=== PATIENT | male | born 1950 | race Caucasian/White ===

== ENCOUNTER 2020-12-07 08:22 | Outpatient (CLI) | payer MEDICARE, BC, SELFPAY ==
--- NOTE | 2020-12-07 | MR_ITS ---
WS: [id number] MRI LEFT ELBOW without CONTRAST. COMPARISON: None Multiplanar, multisequence imaging is performed without contrast. History: Pain in elbow for one and a half months. Very small amount of increased fluid surrounding the radial head. No marrow edema or fracture. Marker indicating the area of interest corresponds to the lateral elbow. Area of interest extends over michelle ral centimeters. The adjacent soft tissues and muscles are normal. There is increased signal with thi ckening involving the proximal common extensor tendon. Intrasubstance tear at the attachment to the e picondyle. The deep radial collateral ligament is intact. No muscle edema or atrophy. There is also i ncreased fluid along the distal biceps tendon sheath. The biceps tendon is very slightly wavy. There is increase fluid along the tendon sheath. Biceps tendon attachment to the radial tuberosity is parti ally torn. There is increase fluid and thickening of the tendon. MR/MR elbow LT wo con* [id number] IMPRESSION: 1. Partial high-grade tear involving the biceps tendon at its attachment to th e radial tuberosity. 2. Proximal, moderate common extensor tendinopathy. Partial intrasubstance tea r.
== END 2020-12-07 08:23 | disposition home or self-care (01) ==
LOC: RADWPI 08:26
PROVIDERS: PCP Family Medicine; Visit Provider Orthopaedic Surgery
DX: M67.8 Other specified disorders of synovium and tendon (principal); S46.212A Strain of muscle, fascia and tendon of other parts of biceps, left arm, initial encounter; X58.XXXA Exposure to other specified factors, initial encounter
CPT/HCPCS: 73221

== ENCOUNTER 2021-02-01 08:23 | Outpatient (RCR) | payer MEDICARE, BC, SELFPAY | END 2021-02-28 23:59 | disposition home or self-care (01) | LOC: SPT 08:23 | PROVIDERS: PCP Family Medicine; Referring Provider Orthopaedic Surgery; Visit Provider Orthopaedic Surgery | DX: Z47.89 Encounter for other orthopedic aftercare (principal) | CPT/HCPCS: 97110; 97140; 97161 ==

== ENCOUNTER 2022-09-29 15:39 | Outpatient (CLI) | payer MEDICARE, BC, SELFPAY ==
--- NOTE | 2022-09-29 | MR_ITS ---
WS: [id number] MRI RIGHT SHOULDER HISTORY: CHRONIC RT SHOULDER PAIN COMPARISON: None available. TECHNIQUE: Multiplanar sequences of the shoulder joint are submitted. Severe AC joint arthritis. Bone and soft tissue hypertrophy. Marked narrowing of the AC joint with hy pertrophic osteophytes along the articular surfaces. Osteophyte encroachment upon the myotendinous in sertion supraspinatus tendon. No significant subacromial or subdeltoid bursal distention. Small osteo phyte distal acromion with mild subacromial encroachment. Normal position of the biceps tendon. Metal lic artifact in the humeral head. Patient denied prior surgery. Mild narrowing of the glenohumeral joint. Insertion site tear measures 6 mm along the articular surfa ce of the supraspinatus, the anterior most part of the supraspinatus. The remaining rotator cuff tend ons appear intact. Normal significant muscle atrophy or edema. Mild increased signal in the labrum. N o tear identified. Intrasubstance degeneration of the labrum. Subchondral cystic disease humeral head . Loss of cartilage involving the humeral head. MR/MR shoulder RT wo con* [id number] IMPRESSION: 1. Severe AC joint arthritis with encroachment upon the myotendinous insertion of the supraspinatus. 2. Small articular surface tear supraspinatus tendon, distal. 3. Intrasubstance degeneration of the labrum. 4. Mild subacromial impingement.
== END 2022-09-29 15:40 | disposition home or self-care (01) ==
LOC: RAD 15:42
PROVIDERS: PCP Family Medicine; Visit Provider Family Medicine
DX: G89.29 Other chronic pain (principal); M13.811 Other specified arthritis, right shoulder; M75.101 Unspecified rotator cuff tear or rupture of right shoulder, not specified as traumatic
CPT/HCPCS: 73221

== ENCOUNTER → 2022-11-01 14:05 | Outpatient (BNVA) | payer MEDICARE, BC, SELFPAY | PROVIDERS: PCP Family Medicine; Referring Provider Family Medicine; Visit Provider Specialist | DX: M75.111 Incomplete rotator cuff tear or rupture of right shoulder, not specified as traumatic (principal); M19.011 Primary osteoarthritis, right shoulder; M75.81 Other shoulder lesions, right shoulder | CPT/HCPCS: 73030; 99204 ==

== ENCOUNTER 2022-11-14 06:00 | Outpatient (RCR) | payer MEDICARE, BC, SELFPAY | END 2022-11-28 23:59 | disposition home or self-care (01) | LOC: SPT 06:00 | PROVIDERS: PCP Family Medicine; Visit Provider Specialist | DX: M25.511 Pain in right shoulder (principal) | CPT/HCPCS: 97110; 97161 ==

== ENCOUNTER 2022-11-29 06:00 | Outpatient (RCR) | payer MEDICARE, BC, SELFPAY | END 2022-12-22 23:59 | disposition home or self-care (01) | LOC: SPT 06:00 | PROVIDERS: PCP Family Medicine; Visit Provider Specialist | DX: M25.511 Pain in right shoulder (principal) | CPT/HCPCS: 97110 ==

== ENCOUNTER → 2023-01-25 08:48 | Outpatient (BNVA) | payer MEDICARE, BC, SELFPAY | PROVIDERS: PCP Family Medicine; Visit Provider Specialist | DX: M19.011 Primary osteoarthritis, right shoulder (principal); M75.81 Other shoulder lesions, right shoulder; Z71.89 Other specified counseling | CPT/HCPCS: 20610; J1100; J2795; J3301 ==

== ENCOUNTER → 2023-01-30 15:15 | Outpatient (BNVA) | payer MEDICARE, BC, SELFPAY | PROVIDERS: PCP Family Medicine; Visit Provider Physician Assistant | DX: M47.812 Spondylosis without myelopathy or radiculopathy, cervical region (principal) | CPT/HCPCS: 72050; 99203 ==

== ENCOUNTER → 2023-03-27 09:40 | Outpatient (BNVA) | payer MEDICARE, BC, SELFPAY | PROVIDERS: PCP Family Medicine; Visit Provider Physician Assistant | DX: M51.36 Other intervertebral disc degeneration, lumbar region (principal); M47.816 Spondylosis without myelopathy or radiculopathy, lumbar region; M54.50 Low back pain, unspecified | CPT/HCPCS: 72110; 99213 ==

== ENCOUNTER → 2023-04-26 13:04 | Outpatient (BNVA) | payer MEDICARE, BC, SELFPAY | PROVIDERS: PCP Family Medicine; Visit Provider Specialist | DX: M75.81 Other shoulder lesions, right shoulder; M75.111 Incomplete rotator cuff tear or rupture of right shoulder, not specified as traumatic; M19.011 Primary osteoarthritis, right shoulder; Z71.89 Other specified counseling | CPT/HCPCS: 20610; J1100; J2795; J3301 ==

== ENCOUNTER → 2023-05-08 09:53 | Outpatient (BNVA) | payer MEDICARE, BC, SELFPAY | PROVIDERS: PCP Family Medicine; Visit Provider Physician Assistant | DX: M51.36 Other intervertebral disc degeneration, lumbar region (principal); M47.816 Spondylosis without myelopathy or radiculopathy, lumbar region | CPT/HCPCS: 99213 ==

== ENCOUNTER 2023-06-21 07:06 | Outpatient (CLI) | payer MEDICARE, BC, SELFPAY ==
--- NOTE | 2023-06-21 12:30 | MR_ITS ---
WS: [id number] MRI LUMBAR SPINE NONCONTRAST HISTORY: lower back pain COMPARISON: None available. TECHNIQUE: Sagittal and axial multisequence imaging is submitted. Examination is compromised by patient's body habitus and motion artifact. Moderate increase in thoracic kyphosis. Mild LEFT curvature lumbar spine. 2 mm anterolisthesis of L5. Disc spaces are mildly narrowed and desiccated throughout the lumbar spine. Large anterior bridging o steophytes at L2-3. Conus terminates normally at L1-2 disc level. L1-L2: Normal. L2-L3: Mild annular disc bulging and osteophytic ridging. Bilateral facet joint arthritis, greatest o n the RIGHT. Very mild encroachment and narrowing of the RIGHT subarticular recess. L3-L4: Mild asymmetric disc bulging with disc encroachment upon the subarticular recesses and central canal. RIGHT foraminal disc protrusion contacting the exiting RIGHT L3 nerve root. Moderate RIGHT cantu barticular recess and foraminal stenosis. Mild central stenosis. Mild LEFT foraminal stenosis. L4-L5: Mild annular disc bulging. Disc encroaches upon the ventral thecal sac contacting the traversi ng L5 nerve roots. Moderate ligamentum flavum and facet arthritis. Mild central and bilateral subarti cular recess and foraminal stenosis. Mild facet arthritis. L5-S1: Diffuse annular disc bulging. Mild facet and mild foraminal stenosis. Bilateral renal cysts. IMPRESSION: 1. L3-4: Moderate sized RIGHT foraminal disc protrusion contacting the exiting LEFT L3 nerve root. Mo derate RIGHT subarticular recess and foraminal stenosis. Mild central stenosis at L3-4. 2. L4-5: Mild central, bilateral subarticular recess and foraminal stenosis. Mild disc contact on the traversing L5 nerve roots. 3. L2-3: Mild RIGHT subarticular recess encroachment by disc and osteophyte disease.
== END 2023-06-21 07:07 | disposition home or self-care (01) ==
LOC: RAD 07:07
PROVIDERS: PCP Family Medicine; Visit Provider Physician Assistant
DX: M51.36 Other intervertebral disc degeneration, lumbar region (principal); M47.816 Spondylosis without myelopathy or radiculopathy, lumbar region; M51.26 Other intervertebral disc displacement, lumbar region; M48.061 Spinal stenosis, lumbar region without neurogenic claudication
CPT/HCPCS: 72148

== ENCOUNTER → 2023-07-10 13:39 | Outpatient (BNVA) | payer MEDICARE, BC, SELFPAY | PROVIDERS: PCP Family Medicine; Visit Provider Physician Assistant | DX: M48.062 Spinal stenosis, lumbar region with neurogenic claudication (principal); M47.816 Spondylosis without myelopathy or radiculopathy, lumbar region; M51.36 Other intervertebral disc degeneration, lumbar region | CPT/HCPCS: 99213 ==

== ENCOUNTER → 2023-07-26 11:19 | Outpatient (BNVA) | payer MEDICARE, BC, SELFPAY | PROVIDERS: PCP Family Medicine; Visit Provider Specialist | DX: M75.111 Incomplete rotator cuff tear or rupture of right shoulder, not specified as traumatic (principal); M19.011 Primary osteoarthritis, right shoulder | CPT/HCPCS: 20610; J1100; J2795; J3301 ==

== ENCOUNTER → 2023-07-31 12:52 | Outpatient (BNVA) | payer MEDICARE, BC, SELFPAY | PROVIDERS: PCP Family Medicine; Visit Provider Podiatrist Foot & Ankle Surgery | DX: B35.1 Tinea unguium (principal); I73.9 Peripheral vascular disease, unspecified | CPT/HCPCS: 11721; 99203 ==

== ENCOUNTER → 2023-10-29 08:07 | Outpatient (BNVA) | payer MEDICARE, BC, SELFPAY | PROVIDERS: PCP Family Medicine; Visit Provider Podiatrist Foot & Ankle Surgery | DX: B35.1 Tinea unguium (principal); I73.9 Peripheral vascular disease, unspecified | CPT/HCPCS: 11721 ==

== ENCOUNTER → 2023-11-01 09:53 | Outpatient (BNVA) | payer MEDICARE, BC, SELFPAY | PROVIDERS: PCP Family Medicine; Visit Provider Nurse Practitioner | DX: M19.011 Primary osteoarthritis, right shoulder (principal); M75.111 Incomplete rotator cuff tear or rupture of right shoulder, not specified as traumatic; Z71.89 Other specified counseling | CPT/HCPCS: 20610; J1100; J2795; J3301 ==

== ENCOUNTER 2023-11-20 09:04 | Outpatient (CLI) | payer MEDICARE, BC, SELFPAY ==
[2023-11-20 09:29] VITALS: PULSE 68; RESP 18; O2SAT 98
[2023-11-20] MEDS: albuterol 2.5 mg/3 mL Neb INHALATION (09:29)
[2023-11-20 09:33] VITALS: PULSE 72
== END 2023-11-20 09:05 | disposition home or self-care (01) ==
LOC: RT 09:06
PROVIDERS: PCP Family Medicine; Visit Provider Family Medicine
DX: R06.02 Shortness of breath (principal); R06.09 Other forms of dyspnea
CPT/HCPCS: 94060; 94729; J7613

== ENCOUNTER → 2023-12-31 07:57 | Outpatient (BNVA) | payer MEDICARE, BC, SELFPAY | PROVIDERS: PCP Family Medicine; Visit Provider Podiatrist Foot & Ankle Surgery | DX: B35.1 Tinea unguium (principal); I73.9 Peripheral vascular disease, unspecified | CPT/HCPCS: 11721 ==

== ENCOUNTER → 2024-03-03 09:08 | Outpatient (BNVA) | payer MEDICARE, BC, SELFPAY | PROVIDERS: PCP Family Medicine; Visit Provider Podiatrist Foot & Ankle Surgery | DX: B35.1 Tinea unguium (principal); I73.9 Peripheral vascular disease, unspecified | CPT/HCPCS: 11721 ==

== ENCOUNTER → 2024-03-14 09:02 | Outpatient (BNVA) | payer MEDICARE, BC, SELFPAY | PROVIDERS: PCP Family Medicine; Visit Provider Specialist | DX: M19.011 Primary osteoarthritis, right shoulder; M75.111 Incomplete rotator cuff tear or rupture of right shoulder, not specified as traumatic | CPT/HCPCS: 20610; J1100; J2795; J3301 ==

== ENCOUNTER → 2024-05-05 07:53 | Outpatient (BNVA) | payer MEDICARE, BC, SELFPAY | PROVIDERS: PCP Family Medicine; Visit Provider Podiatrist Foot & Ankle Surgery | DX: B35.1 Tinea unguium (principal); I73.9 Peripheral vascular disease, unspecified | CPT/HCPCS: 11721 ==

== ENCOUNTER → 2024-07-07 08:00 | Outpatient (BNVA) | payer MEDICARE, BC, SELFPAY | PROVIDERS: PCP Family Medicine; Visit Provider Podiatrist Foot & Ankle Surgery | DX: M54.9 Dorsalgia, unspecified (principal); B35.1 Tinea unguium; I73.9 Peripheral vascular disease, unspecified | CPT/HCPCS: 11721 ==

== ENCOUNTER → 2024-07-11 08:15 | Outpatient (BNVA) | payer MEDICARE, BC, SELFPAY | PROVIDERS: PCP Family Medicine; Visit Provider Specialist | DX: M19.011 Primary osteoarthritis, right shoulder (principal); M75.111 Incomplete rotator cuff tear or rupture of right shoulder, not specified as traumatic | CPT/HCPCS: 20610; J1100; J2795; J3301 ==

== ENCOUNTER → 2024-07-15 14:00 | Outpatient (BNVA) | payer MEDICARE, BC, SELFPAY | PROVIDERS: PCP Family Medicine; Visit Provider Orthopaedic Surgery | DX: M48.062 Spinal stenosis, lumbar region with neurogenic claudication (principal); M54.9 Dorsalgia, unspecified | CPT/HCPCS: 72110; 99214 ==

== ENCOUNTER 2024-07-29 07:47 | Outpatient (RCR) | payer MEDICARE, BC, SELFPAY | END 2024-07-31 23:59 | disposition home or self-care (01) | LOC: SPT 07:47 | PROVIDERS: Visit Provider Orthopaedic Surgery | DX: M54.9 Dorsalgia, unspecified (principal); G89.29 Other chronic pain | CPT/HCPCS: 97161 ==

== ENCOUNTER 2024-08-01 06:00 | Outpatient (RCR) | payer MEDICARE, BC, SELFPAY | END 2024-08-30 23:59 | disposition home or self-care (01) | LOC: SPT 06:00 | PROVIDERS: Visit Provider Orthopaedic Surgery | DX: M54.9 Dorsalgia, unspecified (principal); G89.29 Other chronic pain | CPT/HCPCS: 97110 ==

== ENCOUNTER → 2024-09-02 13:09 | Outpatient (BNVA) | payer MEDICARE, BC, SELFPAY | PROVIDERS: PCP Family Medicine; Visit Provider Orthopaedic Surgery | DX: Z09 Encounter for follow-up examination after completed treatment for conditions other than malignant neoplasm (principal); M48.062 Spinal stenosis, lumbar region with neurogenic claudication | CPT/HCPCS: 99213 ==

== ENCOUNTER → 2024-09-09 13:27 | Outpatient (BNVA) | payer MEDICARE, BC, SELFPAY | PROVIDERS: PCP Family Medicine; Visit Provider Podiatrist Foot & Ankle Surgery | DX: M79.671 Pain in right foot (principal); I73.9 Peripheral vascular disease, unspecified; B35.1 Tinea unguium; M54.9 Dorsalgia, unspecified | CPT/HCPCS: 73630; 99213 ==

== ENCOUNTER 2024-11-03 08:07 | Outpatient (CLI) | payer MEDICARE, BC, SELFPAY ==
[2024-11-03 08:29] VITALS: BMI 32.5
--- NOTE | 2024-11-03 08:32 | NMCV_ITS ---
NM lv perf SPECT r/s* [id number] Jese Whitfield Age: 74 Gender: M : 1950 Exam Date: 11/03/2024 09:20 Ordering Phys: Matt Huitron MD Technologist: Sudheer Hough Exam Location: [facility] Indications: cp STRESS TEST Please see separate stress test report in [facility] for full findings IMAGE PROTOCOL Rest/Stress 1 Exercise Day Radiopharmaceutical Dose (mCi) Administration Site Administered by Rest: Tc-99m 10.6 IV Em Sharmin, [employer] Sestamibi Stress:Tc-99m 32.9 IV Em Hsarmin, [employer] Sestamibi Rest: 03-Nov-2024 60 Discovery 630 Stress: 03-Nov-2024 15 Discovery 630 Radiopharmaceutical was injected at 87 % maximum heart rate. Supine position only as patient was unable to lay prone. SPECT RESULTS Technical Quality: Good Raw Data Analysis: Normal Image Corrections: No attenuation or motion correction applied Summed Stress Score: 6 Summed Rest Score: 3 Summed Difference Score: 3 PERFUSION FINDINGS There is a large sized area of partially reversible, moderate intensity perfusion defect seen in the inferior wall. This is consistent with medium sized area of prior infarct with large area of mariely-infarct ischemia seen in the inferior wall. FUNCTIONAL RESULTS (calculated via Gated SPECT) Stress Image LV EF (%): 84 Stress EDV (mL):51 TID: 0.77 Stress ESV (mL):8 FUNCTIONAL FINDINGS: There is normal left ventricular systolic function. IMPRESSIONS 1. Abnormal myocardial perfusion imaging with medium sized area of prior infarct with large area of mariely-infarct ischemia seen in the inferior wall. 2. LV systolic function is normal Kale Molina MD (Electronically Signed) Final Date: 04 November 2024 19:46 S
--- NOTE | 2024-11-03 08:32 | ECG_ITS ---
[facility] 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 Interpretive Statements EXERCISE MIBI EXERCISE DATA: The patient was exercised by Kurt protocol. Baseline heart rate was 84 beats per minute. Baseline blood pressure was 130/86 millimeters of mercury. Maximal predicted heart rate was 144 beats per minute. Maximum heart rate achieved was 135 which was 93% of the maximum predicted heart rate. Maximum blood pressure was 177/78 millimeters of mercury. Total exercise time was 3 minutes and 30 seconds. Maximum METs achieved was 4.6. The reason for ending the test was completion of protocol. The patient complained of shortness of breath during the stress test, which then resolved at the end of the test. ELECTROCARDIOGRAM: BASELINE: Showed sinus rhythm, right bundle branch block, no significant ST-T changes at the baseline noted. [] EXERCISE: At the peak exercise level, [] No significant ST-T changes suggestive of ischemia noted. [] RECOVERY: During the recovery period, heart rate dropped appropriately. No significant ST-T changes in the recovery suggestive of ischemia noted. [] CONCLUSION: 1. Exercise capacity is poor 2. Heart rate response was appropriate 3. Blood pressure response was appropriate 4. Symptoms not suggestive of ischemia. 5. Electrocardiogram portion of the stress test was not suggestive of ischemia. 6. Nuclear scan will be documented separately. Electronically Signed On 11-23-2024 12:28:12 [employer]INE[employer]IAISON by Kale Molina M.D. [email or web address]
[2024-11-03 10:08] VITALS: BP 128/64; PULSE 83
== END 2024-11-03 08:08 | disposition home or self-care (01) ==
LOC: CDL 08:08
PROVIDERS: PCP Family Medicine; Visit Provider Family Medicine
DX: R06.09 Other forms of dyspnea (principal); I25.2 Old myocardial infarction
CPT/HCPCS: 36415; 78452; 93017; A9500

== ENCOUNTER → 2024-11-11 13:25 | Outpatient (BNVA) | payer MEDICARE, BC, SELFPAY | PROVIDERS: PCP Family Medicine; Visit Provider Podiatrist Foot & Ankle Surgery | DX: I73.9 Peripheral vascular disease, unspecified (principal); B35.1 Tinea unguium; M54.9 Dorsalgia, unspecified | CPT/HCPCS: 11721 ==

== ENCOUNTER → 2024-11-14 07:54 | Outpatient (BNVA) | payer MEDICARE, BC, SELFPAY | PROVIDERS: PCP Family Medicine; Visit Provider Specialist | DX: M19.011 Primary osteoarthritis, right shoulder (principal); M75.81 Other shoulder lesions, right shoulder; M75.111 Incomplete rotator cuff tear or rupture of right shoulder, not specified as traumatic; Z71.89 Other specified counseling | CPT/HCPCS: 20610; J1100; J2795; J3301 ==

== ENCOUNTER → 2025-01-13 13:56 | Outpatient (BNVA) | payer MEDICARE, BC, SELFPAY | PROVIDERS: PCP Family Medicine; Visit Provider Podiatrist Foot & Ankle Surgery | DX: I73.9 Peripheral vascular disease, unspecified (principal); B35.1 Tinea unguium | CPT/HCPCS: 11721 ==

== ENCOUNTER → 2025-01-16 08:41 | Outpatient (BNVA) | payer MEDICARE, BC, SELFPAY | PROVIDERS: PCP Family Medicine; Visit Provider Specialist | DX: M19.011 Primary osteoarthritis, right shoulder (principal); M75.81 Other shoulder lesions, right shoulder; M75.111 Incomplete rotator cuff tear or rupture of right shoulder, not specified as traumatic | CPT/HCPCS: 20610; J1100; J2795; J3301; J9999 ==

== ENCOUNTER → 2025-03-24 09:49 | Outpatient (BNVA) | payer MEDICARE, BC, SELFPAY | PROVIDERS: PCP Family Medicine; Visit Provider Podiatrist Foot & Ankle Surgery | DX: I73.9 Peripheral vascular disease, unspecified (principal); B35.1 Tinea unguium | CPT/HCPCS: 11721 ==

== ENCOUNTER → 2025-04-24 08:45 | Outpatient (BNVA) | payer MEDICARE, BC, SELFPAY | PROVIDERS: PCP Family Medicine; Visit Provider Specialist | DX: M19.011 Primary osteoarthritis, right shoulder (principal); M75.111 Incomplete rotator cuff tear or rupture of right shoulder, not specified as traumatic; M75.81 Other shoulder lesions, right shoulder | CPT/HCPCS: 20610; J1100; J2795; J3301; J9999 ==

== ENCOUNTER → 2025-05-28 07:56 | Outpatient (BNVA) | payer MEDICARE, BC, SELFPAY | PROVIDERS: PCP Family Medicine; Visit Provider Podiatrist Foot & Ankle Surgery | DX: I73.9 Peripheral vascular disease, unspecified (principal); B35.1 Tinea unguium | CPT/HCPCS: 11721 ==

== ENCOUNTER → 2025-08-06 07:50 | Outpatient (BNVA) | payer MEDICARE, BC, SELFPAY | PROVIDERS: PCP Family Medicine; Visit Provider Podiatrist Foot & Ankle Surgery | DX: E11.8 Type 2 diabetes mellitus with unspecified complications (principal); B35.1 Tinea unguium; I73.9 Peripheral vascular disease, unspecified | CPT/HCPCS: 11721 ==

== ENCOUNTER → 2025-09-18 10:55 | Outpatient (BNVA) | payer MEDICARE, BC, SELFPAY | PROVIDERS: PCP Family Medicine; Visit Provider Specialist | DX: M19.011 Primary osteoarthritis, right shoulder (principal); M75.111 Incomplete rotator cuff tear or rupture of right shoulder, not specified as traumatic; M75.81 Other shoulder lesions, right shoulder | CPT/HCPCS: 20610; J1100; J2795; J3301; J9999 ==